=== PATIENT | female | born 1980 | race Caucasian/White ===

== ENCOUNTER 2017-07-21 10:24 | Emergency (ER) | payer BC ==
[2017-07-21 10:55] VITALS: BP 147/88
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
[2017-07-21] MEDS ORDERED: HYDROcodone/ACETAMIN 5-325 MG* 1 TAB PO ONE (11:07)
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
--- NOTE | 2017-07-21 12:05 | RAD ---
Indication: Left shoulder pain. 3 views of left shoulder are reviewed. There is no evidence of fracture or dislocation. No other bone or joint abnormality is noted. IMPRESSION: No fracture of left shoulder is noted.
== END 2017-07-21 12:19 | disposition home or self-care (01) ==
LOC: UCCORT 10:24
DX: S40.012A Contusion of left shoulder, initial encounter (principal); I10 Essential (primary) hypertension; V49.40XA Driver injured in collision with unspecified motor vehicles in traffic accident, initial encounter
CPT/HCPCS: 70450; 70486; 99212; G0463